=== PATIENT | male | born 1950 | race Caucasian/White ===

== ENCOUNTER 2019-02-14 09:11 | Emergency (ER) | payer MEDICARE ==
[2019-02-14 09:19] VITALS: BP 153/87
--- NOTE | 2019-02-14 09:32 | UC ---
Cardiac HPI - HPI Summary HPI Summary: Awoke this morning with discomfort/tightness in the l=right lower chest, without associated sweating, nausea, rebound. Remote histor of one episode of a fib requiring cardioversion about 20 years ago. Does not regularly see a physician. Under a lot of stress due to family situation. Exercises regularly with good tolerance of activity. NO hx of hypertension. Past hx of ER visit one Tanishagijohanna and was advised that he had gallbladder disease based on USS, but has never had this followed up. Yesterday ate donut, hot dog for lunch, pork sandwich for dinner and 3 beers; atypical eating for him. 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 - here with his Onset/Duration: Sudden Onset, Lasting Hours - 3.5 Initial Severity: Mild Current Severity: Mild Pain Intensity: 2 Chest Pain Location: Right Lateral Character: Dull/Aching, Heaviness Aggravating Factor(s): Nothing - Allergy/Home Medications Allergies/Adverse Reactions: Allergies Allergy/AdvReac Type Severity Reaction Status Date / Time No Known Allergies Allergy Verified 04/10/14 08:38 Home Medications: Home Medications Vit A/C/E AC/Znox/Cupric Oxide [Eyeprotect Tablet] 1 tab PO BID 02/14/19 [ History Confirmed 02/14/19] PMH/Surg Hx/FS Hx/Imm Hx Previously Healthy: Yes - no hx of hypertension. - Surgical History Surgical History: Yes Surgery Procedure, Year, and Place: Eye surgery, hand surgery - Family History Known Family History: Positive: Other - mother living and well at 92 Negative: Cardiac Disease - Social History Occupation: Employed Full-time Lives: With Family Alcohol Use: Occasionally Substance Use Type: None Smoking Status (MU): Former Smoker Have You Smoked in the Last Year: No When Did the Patient Quit Smoking/Using Tobacco: Age 19 Review of Systems All Other Systems Reviewed And Are Negative: Yes Constitutional: Positive: Negative Skin: Positive: Negative Eyes: Positive: Negative ENT: Positive: Negative Respiratory: Negative: Shortness Of Breath, Cough Cardiovascular: Positive: Chest Pain. Negative: Palpitations Gastrointestinal: Positive: Abdominal Pain. Negative: Vomiting, Nausea Genitourinary: Negative: Dysuria, Hematuria, Frequency Motor: Positive: Negative Neurovascular: Positive: Negative Musculoskeletal: Positive: Negative Neurological: Positive: Negative Psychological: Positive: Depressed - low mood x weeks due to business stress and worry about his 17 yo daughter of whom he and his have custody. Sleeping ok, no suicidality. Is Patient Immunocompromised?: No Physical Exam Triage Information Reviewed: Yes Appearance: Other: - depressed mood and affect, soft spoken Vital Signs: Initial Vital Signs Temp 97.2 F 02/14/19 09:13 Pulse 55 02/14/19 09:13 Resp 16 02/14/19 09:13 BP 153/87 02/14/19 09:13 Pulse Ox 98 02/14/19 09:13 Eye Exam: Normal, Other - fundi normal Eyes: Positive: Conjunctiva Clear ENT: Positive: Pharynx normal Neck: Positive: Supple, Nontender, No Lymphadenopathy Respiratory: Positive: Lungs clear, Normal breath sounds Cardiovascular: Positive: RRR, No Murmur Abdomen Description: Positive: No Organomegaly, Soft, Other: - tenderness without guarding right liver margin.. Negative: Guarding, Peritoneal Signs Bowel Sounds: Positive: Present Musculoskeletal Exam: Normal Neurological: Positive: Alert, Muscle Tone Normal Psychological Exam: Other - deoressed mood and affect, soft speech, decreased eye contact. No suicidality. Insight good and judgement intact. Skin Exam: Normal - Assessment/Plan Course Of Treatment: I suspect that the pain is either gallbladder or gi relanted. Discussed depression and jim for follow up . Requests short term med for anxiety pending follow up with his PMD< Dr. Levy. Office Center search # [id number] shows no hx of controlled substances. - Differential Diagnoses - Chest Pain Differential Diagnosis/HQI/PQRI: Acute NC, GI Disease - Differential Diagnoses - Hypertension Differential Diagnosis/HQI PQRI: Hypertension - Clinical Impression Provider Diagnosis: RUQ discomfort, Adjustment reaction Discharge - Sign-Out/Discharge Documenting (check all that apply): Patient Departure All imaging exams completed and their final reports reviewed: No Studies - Discharge Plan Condition: Good Disposition: HOME Prescriptions: LORazepam TAB(*) [Ativan 0.5 MG TAB (*)] 0.5 mg PO TID PRN #10 tab MDD 3 PRN Reason: Anxiety Patient Education Materials: Biliary Colic (ED), Anxiety (ED) Referrals: Sharan Levy MD [Primary Care Provider] - Additional Instructions: Follow up with Dr. Levy in the next 2 days is very important. You can use lorazepam as needed for anxiety, but DO NOT COMBINE WITH ALCOHOL. This is a mild relaxant for short term use, but I suggest reviewing your symptoms with Dr. Levy to see if further treatment of anxiety and depression is needed. The pain in your right side is consistent with possible gallbladder disease, and more testing is needed. This can be arranged with Dr. Issa. I advised a low fat diet, minimal intake of alcohol and caffeine, use of antacids as needed to decrease pain. - Billing Disposition and Condition Condition: GOOD Disposition: Home
[2019-02-14] MEDS ORDERED: Al Hydrox/Mg Hydrox/Simet LIQ* 30 ML UDC PO ONE (09:51)
[2019-02-14] MEDS: Al Hydrox/Mg Hydrox/Simet LIQ* 30 ML UDC PO ONE ×2 (09:53→09:59)
== END 2019-02-14 10:15 | disposition home or self-care (01) ==
LOC: UCEAST 09:11
DX: R10.11 Right upper quadrant pain (principal); F43.20 Adjustment disorder, unspecified
CPT/HCPCS: 99202; A9270-GY; G0463